=== PATIENT | male | born 1935 | race Caucasian/White ===

== ENCOUNTER 2023-04-21 06:18 | Day surgery (SDC) | payer OTHER, SELFPAY ==
[2023-04-08 10:14] LABS: Urine Albumin Trace (Neg - Trace); Urine Bilirubin Negative (Negative); Urine Character Clear (Clear); Urine Color Yellow; Urine Glucose Negative (Negative); Urine Ketone Negative (Negative); Urine Leukocyte Negative (Negative); Urine Nitrite Negative (Negative); Urine Occult Blood Negative (Negative); Urine Specific Gravity 1.015 (<1.030); Urine Urobilinogen Negative (Neg - 1+)
[2023-04-08 10:16] LABS: Hematocrit 48.5 % (39.0-52.0); Mean Corp Hgb Conc. 35.1 g/dL (33.0-37.0); Mean Corpuscular Hgb 33.3 pg (27.0-31.0); Mean Corpuscular Volume 95.1 fL (80.0-94.0); Mean Platelet Volume 9.2 fL (7.4-10.4); Platelet Count 230 10^3/uL (130-400); Red Cell Dist. Width 12.1 % (11.5-14.5); White Blood Cell Count 8.6 10^3/uL (4.8-10.8)
[2023-04-08 10:27] LABS: INR 0.95; PT 12.7 Sec (11.4-14.6)
[2023-04-08 10:28] LABS: APTT 30.6 Sec (23.4-35.0)
[2023-04-08 10:56] LABS: Blood Urea Nitrogen 22 mg/dl (9-20); Calcium 9.6 mg/dl (8.4-10.2); Carbon Dioxide 30 mmol/L (22-30); Chloride 98 mmol/L (98-107); Glucose 107 mg/dl (70-99); Potassium 3.9 mmol/L (3.5-5.1); Sodium 136 mmol/L (135-145); eGFR > 60.00
[2023-04-08 13:49] VITALS: BMI 31.4
[2023-04-21] VITALS (11 sets, daily range): BP systolic 140–172; BP diastolic 73–95; BMI 31.4
[2023-04-21] MEDS: NORMOSOL-R 1000 IV (09:30)
[2023-04-21] MEDS: TORADOL 30 MG IV (11:47)
== END 2023-04-21 13:48 | disposition home or self-care (01) ==
LOC: SDS 06:18
PROVIDERS: ATTENDING PHYSICIAN Specialist; FAMILY PHYSICIAN Family Medicine
DX: N43.3 Hydrocele, unspecified (principal)
CPT/HCPCS: 55060; 36415; 80048; 81003; 85027; 85610; 85730

== ENCOUNTER 2024-06-22 06:20 | Day surgery (SDC) | payer OTHER, SELFPAY ==
[2024-06-22] VITALS (20 sets, daily range): BP systolic 103–170; BP diastolic 58–93; BMI 30.6; BMI 31.1
[2024-06-22] MEDS: TYLENOL 1000 MG PO (08:15)
[2024-06-22] MEDS: NORMOSOL-R/PLASMALYTE-A 1000 IV (08:22)
--- NOTE | 2024-06-22 08:45 | W.SUR.PREOP ---
Pre-Operative Surgical Note
-
I have examined this patient prior to the performance of the scheduled procedure.
The patient's condition is unchanged from the time of the current History and
Physical and the patient is able to undergo the scheduled procedure.
--- NOTE | 2024-06-22 10:46 | W.IMMPOSTOP ---
Surgical Immed Post Op Note
-
Primary Surgeon: Rashawn Jacobo MD
Assisting Surgeon: None
Pre-op Diagnosis: Right inguinal hernia
Post-op Diagnosis: Same
Procedure Performed: Robotic right inguinal hernia repair with mesh (JAMMIE approach)
Anesthesia Type: General
Specimen / Cultures: None
Estimated Blood Loss: 3 cc
Complications: None
Operative Findings: Medium sized right indirect inguinal defect, no direct or femoral components. After achieving the critical view of the MPO, the space was reinforced with a large right Bard soft uncoated polypropylene mesh.
--- NOTE | 2024-06-22 10:56 | OR.RPT ---
Operative Report
Operative Report
Patient Name: Farhad Christie
: 1935
Date of Operation: 06/22/2024
Preoperative Diagnosis: Reducible Inguinal hernia, right
Postoperative Diagnosis: Same
Procedure(s):
Robotic right inguinal Hernia Repair with mesh, (JAMMIE approach)
Surgeon(s):
Dr. Jacobo
Health Worker(s):
RACHAEL Jimenez
Anesthesia: General
Estimated Blood Loss: 3 cc
Urine Output: None
Drains/Lines/Implants: Large 3D Max Bard mid weight uncoated polypropylene mesh
Specimens: None
Indication for surgery: The patient has a history of groin pain and noted on exam to have a right inguinal Hernia(s). Following review of therapeutic options they have elected to undergo a minimally invasive repair.
Operative Findings: Medium sized right indirect inguinal defect, no direct or femoral components. After achieving the critical view of the MPO, the space was reinforced with a large right Bard soft uncoated polypropylene mesh.
Details of the operation:
The patient was brought to the Operating Room and placed in the supine position with the arms tucked. IV antibiotics were infused and Venodyne stockings placed. Following uneventful induction of general endotracheal anesthesia, an orogastric tube
was placed. The abdomen was prepped and draped in the usual sterile fashion. The abdomen was entered using a Veress technique which required 1 pass(es), pneumoperitoneum to 15 mmHg was obtained without difficulty. An 8mm trochar was passed through
the abdominal wall roughly 20 cm cephalad to the inguinal canal. We then confirmed that no inadvertent injury was made while passing the trocar or Veress needle. We then placed two additional 8 mm ports in the left upper and right upper quadrants.
We then docked the robot with a Prograsper in the left hand port and monopolar scissors in the right. Right indirect inguinal hernia was immediately identified, no defect was noted on the left. He did have some scar tissue in the right upper
quadrant as expected given his prior subcostal incision however our ports were well below this. We then began by creating a flap at the level of the ASIS laterally working our way medially to the medial umbilical fold. Staying onto the peritoneum
we were able to circumferentially dissect around the hernia sac and and peel it off of the underlying spermatic cord and testicular vessels, taking care to preserve them. Medially we identified the midline pubis as well as Aaron's ligament and
ensured to dissect 2 cm below the pubic rim over the bladder. After exposure of the entire myopectineal orifice we identified and reduced: A medium sized indirect inguinal hernia, no direct inguinal hernia, no femoral hernia, and no cord lipoma
We then fixated a large 3D max mesh with a 2-0 Vicryl stitch at coopers medially and superior laterally. The flap was then closed with a running 2-0 barbed monocryl suture ensuring that the tail was cut flush with the medial fat pad so that no
barbs were exposed. During the closure of the flap an Angiocath was inserted and 20 cc of quarter percent Marcaine was instilled. The area in the flap cavity was then evacuated of air confirming that the mesh was flush and there were no folds. All
needles and instruments were then removed and the robot was undocked. The abdomen was then desufflated, and pneumoperitoneum evacuated. All skin sites were then closed with 4-0 Monocryl followed by Dermabond. Counts were correct and overall, the
patient tolerated the procedure well and was taken to the Recovery Room postoperatively in stable condition.
I was the attending physician and performed the procedure with assistance of the PA above. The assistance of RACHAEL Jimenez was required due to the complexity of the procedure. During the procedure Daniela assisted with port placement, instrument
and needle exchanges, and closure of the wound. I was present for all portions of the case, excluding skin closure.
Rashawn Jacobo MD
[2024-06-22] MEDS: DILAUDID 0.25 MG IV ×4 (11:22→12:52)
[2024-06-22] MEDS: TYLENOL PO (17:42)
--- NOTE | 2024-06-22 17:44 | PTCARENOTE ---
pt admitted from [facility]. denies pain. PO 89% on2L increased to 94 on 3L. RRR. abd round, 5 lap sites well approximated with surgical adhesive. No edema, +PP. oriented to surroundings, CB in reach instructed to use.
[2024-06-22] MEDS: TORADOL IV (20:01)
[2024-06-22] MEDS: TYLENOL 650 MG PO ×2 (20:03→23:08)
[2024-06-22] MEDS: HEPARIN 5000 UNITS SC (20:03)
[2024-06-22] MEDS: TORADOL 10 MG IV (23:08)
--- NOTE | 2024-06-22 23:52 | PTCARENOTE ---
Pt resting comfortably. Denies any complaints of pain at this time. 5 lap sites open to air with surg glue intact. Pt remains on 3 LO2 NC, pox 93%. Lungs dec @ bases. Pt using urinal as needed. Right hand int capped. Call israel in reach. Will
continue to monitor.
[2024-06-23 03:20] VITALS: BP 123/71
[2024-06-23] MEDS: TYLENOL PO (05:17)
[2024-06-23] MEDS: TORADOL 10 MG IV ×2 (05:18→12:35)
[2024-06-23 07:20] VITALS: BP 141/79
[2024-06-23] MEDS: HEPARIN 5000 UNITS SC (09:34)
[2024-06-23] MEDS: NORVASC 2.5 MG PO (09:34)
[2024-06-23] MEDS: TYLENOL 650 MG PO ×2 (09:34→12:35)
--- NOTE | 2024-06-23 09:58 | CM ---
CM reviewed medical records. Patient lives alone, but has a friend Bart who provides transportation and meal assistance. Patient does not have a history of VN. Patient did stay at [facility]. Patient is active with his PCP. Patient uses [facility] in
[place] for medication services.
PLAN: home with friend, no needs noted.
--- NOTE | 2024-06-23 11:23 | W.PN.GS2 ---
Today's Communication / Plan
-
Dispo plan
Assessment / Plan
-
This is an 88-year-old male POD #1 status post robotic right inguinal hernia repair with mesh. Admitted postoperatively for respiratory insufficiency requiring nasal oxygen and abdominal pain both of which improved today.
Dispo planning
Time Spent
Total Time Spent with Patient (in minutes): 20
Subjective Data
-
Date of Service: June 23, 2024
Interval Events:
No acute events overnight. Slept well. Pain Controlled. Denies Nausea/Vomiting, +bowel function. Tolerating diet.
Objective Data
-
Intake and Output
06/22/24 06/23/24 06/24/24
06:59 06:59 06:59
Intake Total 890 / 890
Output Total 250 / 550 300 / 300
Balance 640 / 340 -300 / -300
Intake:
Oral fluids 640 / 640
IV fluids (Total) 250 / 250
Normosol 250 / 250
Output:
Urine, Voided 250 / 550 300 / 300
Other:
Number of approximated MODERATE 1
amounts of urine
Vital Signs
Temp Pulse Resp BP Pulse Ox
98.4 F 81 18 141/79 95
06/23/24 07:20 06/23/24 07:20 06/23/24 07:20 06/23/24 07:20 06/23/24 07:20
Physical Exam
-
GENERAL/NEURO: Awake, Alert, no distress
CHEST: Unlabored breathing on RA
ABDOMEN: Soft, Non-Tender, Non-Distended, incisions clean dry and intact
Patient has a palacio catheter: No
Patient has a central line: No
[2024-06-23 11:30] VITALS: BP 148/67
--- NOTE | 2024-06-23 12:56 | W.DS.TRANS ---
DC Summary - Psychology Associate
-
Discharge Instructions:
Sleep Apnea Risk Intermediate
Discharge Diagnosis/Procedures Right inguinal hernia. Robotic right inguinal
hernia repair with mesh.
Diet No restrictions
Activity No strenuous activity
Driving Restrictions As prior to admission
Bathing Restrictions OK to Shower
Instructions:
Stand-Alone Forms:
Changes to Home Medications: No
Discharge Medications:
DC Medications w/original date entered in [facility]
amlodipine 2.5 mg tablet 2.5 mg PO DAILY Blood Pressure 10/18/22
ascorbic acid (vitamin C) 500 mg tablet (Vitamin C) 500 mg PO DAILY Supplement 10/18/22
aspirin 81 mg tablet,delayed release 81 mg PO DAILY Blood Clot Prevention/Tx 10/18/22
atorvastatin 40 mg tablet 40 mg PO DAILY High Cholesterol 10/18/22
lisinopril 20 mg-hydrochlorothiazide 25 mg tablet 1 tab PO DAILY Blood Pressure 10/18/22
acetaminophen 325 mg tablet 650 mg (2 x 325 mg) PO Q6HPRN PRN mild pain #14 tabs 06/22/24
ibuprofen 600 mg tablet 600 mg PO Q6H PRN pain #14 tabs 06/22/24
Home Medication Changes
Pending Results: No
--- NOTE | 2024-06-23 13:12 | PTCARENOTE ---
Patient OOB with min assist and single point cane to the chair. Patient has no c/o pain, tolerating regular diet, voiding without difficulty.
[2024-06-23 15:00] VITALS: BP 133/69
--- NOTE | 2024-06-23 15:35 | PTCARENOTE ---
Discharge instructions reviewed with patient and his neighbor. All questions answered, neighbor made follow up appointments with surgeon.
== END 2024-06-23 16:32 | disposition home or self-care (01) ==
LOC: SDS 06:20
PROVIDERS: ATTENDING PHYSICIAN Surgery
DX: K40.90 Unilateral inguinal hernia, without obstruction or gangrene, not specified as recurrent (principal)
CPT/HCPCS: 49650; C1781